=== PATIENT | male | born 1995 | race Caucasian/White ===

== ENCOUNTER 2016-09-28 22:43 | Emergency (ER) | payer BC ==
[~2016-09-28] VITALS: Ht 177.8 cm; Wt 74.9 kg
[2016-09-28 22:49] VITALS: TEMP 37.1; Ht 177.8 cm; Wt 74.9 kg
--- NOTE | 2016-09-29 00:06 | EMERGENCY ROOM VISIT NOTE ---
History First contact with patient: 22:54 Chief Complaint: FALL Stated Complaint: FELL DOWN STAIRS,RT ELBOW/FOREARM PAIN History of Present Illness The patient is a 21 year old male who presents to the Emergency Room with complaints of an injury to his right elbow after slipping on ice while walking down steps this afternoon. The patient believes that most of his weight fell on his backpack. He does report striking his right elbow on the step. The patient did immediately develop swelling of the elbow that did resolve over and hour period of time. He reports minimal discomfort at this time, rating his pain a 1 out of 10. He is slightly concerned because he does feel a popping sensation in the elbow when he flexes and extends it. He denies any prior history of elbow injuries. He currently denies any pain extending into the shoulder, neck or back. He denies hitting his head. The patient is right-hand- dominant. Review of Systems 10 system review was performed and was negative except for pertinent positives and negatives as indicated in history of present illness Past Medical/Surgical History Medical Problems: (1) No significant past medical history Surgical Problems: (1) No history of previous surgery Family History Unremarkable Social History Smoking Status: Never Smoker Alcohol Use: occasionally Marital Status: single Occupation Status: [employer] student Current/Historical Medications No Active Prescriptions or Reported Meds Allergies Coded Allergies: Sulfa Antibiotics (Verified Allergy, Intermediate, childhood allergy. unknown reaction, 09/28/16) Physical Exam Vital Signs Date Time Temp Pulse Resp B/P Pulse Ox O2 Delivery O2 Flow Rate FiO2 09/28/16 22:49 37.1 94 18 147/95 97 Room Air Physical Exam CONSTITUTIONAL: Healthy and well nourished. Alert and oriented X 3 with positive affect. Patient does not appear in any acute distress. HEENT: Normocephalic, atraumatic. Pupils equal, round and reactive. NECK: Full active range of motion without discomfort. MUSCULOSKELETAL: Examination shows a resolving hematoma of the right posterior elbow/proximal forearm region. No laceration noted. The patient otherwise has full flexion, extension, pronation and supination with minimal discomfort. No obvious joint effusion. Collateral ligaments are intact. Capillary refill is less than 2 seconds. INTEGUMENTARY: No rash or other significant dermatologic conditions noted. NEUROLOGIC: No focal neurologic deficits noted. Right hand median, radial and ulnar motor and sensory are intact. Medical Decision & Procedures ER Provider Diagnostic Interpretation: My interpretation of right elbow x-rays does not show any acute fractures or dislocation. Radiologist report is pending. ED Course Patient history and physical exam were performed. Nurse's notes were reviewed. The patient refused any analgesics while in the emergency department. X-rays of the right elbow are normal. The patient was encouraged to intermittently apply ice to the elbow as needed for swelling and discomfort. Ibuprofen or Tylenol if needed for additional pain relief. The patient was encouraged to follow-up with orthopedics if he has any persistent elbow discomfort. The patient was happy with plan of care, voiced understanding of all discharge instructions, and denied any pain at the time of discharge. Medical Decision Impression Primary Impression: Contusion of right elbow Additional Impressions: Fall down steps Fall due to slipping on ice or snow Departure Information Prescriptions No Active Prescriptions or Reported Meds Referrals [facility] (PCP) Patient Instructions [facility] Problem Qualifiers Primary Impression: Contusion of right elbow Encounter type: initial encounter Qualified Codes: S50.01XA - Contusion of right elbow, initial encounter Additional Impressions: Fall down steps Encounter type: initial encounter Qualified Codes: W10.8XXA - Fall (on) ( from) other stairs and steps, initial encounter Fall due to slipping on ice or snow Encounter type: initial encounter Qualified Codes: W00.9XXA - Unspecified fall due to ice and snow, initial encounter
[2016-09-29 00:56] VITALS: BP 141/88; PULSE 73; O2SAT 98
--- NOTE | 2016-09-29 06:40 | DIAGNOSTIC IMAGING REPORT ---
RIGHT ELBOW MIN 3 VIEWS ROUTINE CLINICAL HISTORY: Right elbow pain COMPARISON: None. DISCUSSION: The fat pads are not displaced. No fractures or dislocations are visualized. No erosive or destructive changes are delineated. IMPRESSION: No fractures or dislocations are visualized. Electronically signed by: Sam Caal M.D. 09/29/2016 6:39 AM Dictated Date/Time: 09/29/2016 6:38 AM
== END 2016-09-29 00:57 | disposition home or self-care (01) ==
LOC: C.EDB 22:44 → C.EDA 09-29 00:57
DX: S50.01XA Contusion of right elbow, initial encounter (principal); W00.1XXA Fall from stairs and steps due to ice and snow, initial encounter